=== PATIENT | male | born 1950 | race African-American/Black ===

== ENCOUNTER 2017-05-24 04:45 | Inpatient (IN) ==
--- NOTE | 2017-05-19 11:44 | EKG Report ---
Test Performed on : 05/19/2017 11:00:00 AM Test Reason : pat Blood Pressure : / mmHG Vent. Rate : 060 BPM Atrial Rate : 060 BPM P-R Int : 204 ms QRS Dur : 092 ms QT Int : 400 ms P-R-T Axes : 019 -02 005 degrees QTc Int : 400 ms Normal sinus rhythm. Nonspecific T wave abnormality Abnormal ECG When compared with ECG of 13-MAR-2015 11:14, No significant change was found Confirmed by Jose Ricardo DO ([id number]) on 05/21/2017 11:19:27 AM
[2017-05-19 12:05] LABS: HEMATOCRIT 41.1 % (42.0-52.0); HEMOGLOBIN 13.4 g/dL (14.0-18.0); MCH 28.5 PG (27-31); MCHC 32.6 g/dL (33-37); MCV 87.4 FL (81-99); MPV 12.3 FL (7.4-10.4); RBC 4.7 XMIL (4.7-6.1)
[2017-05-19 12:16] LABS: AGAP 14; BUN 12 mg/dL (8-22); CALCIUM 9.2 mg/dL (8.8-10.2); CHLORIDE 102 mmol/L (98-107); COSMO 277; POTASSIUM 4.3 mmol/L (3.5-5.1); SODIUM 139 mmol/L (136-145); TCO2 23 mmol/L (25-35)
[2017-05-24] MEDS ORDERED: PEPCID ONE (06:42)
[2017-05-24] MEDS ORDERED: LR 1,000 ML ONE ×3 (06:42→11:14)
[2017-05-24] MEDS ORDERED: INVANZ 1 GM/NS 1 GM/50 ML IVPB ONE (06:42)
[2017-05-24] MEDS ORDERED: ENTEREG ONE (06:42)
[2017-05-24] MEDS ORDERED: REGLAN ONE (06:42)
[2017-05-24] MEDS ORDERED: DIPRIVAN 1% ONE (06:52)
[2017-05-24] MEDS ORDERED: XYLOCAINE-MPF 2% ONE (06:54)
[2017-05-24] MEDS ORDERED: XYLOCAINE 1%/EPI 1:100,000 ONE (07:01)
[2017-05-24] MEDS ORDERED: MARCAINE 0.25% PF ONE ×4 (07:01→12:18)
[2017-05-24] MEDS ORDERED: EXPAREL 1.3% ONE (07:14)
[2017-05-24] MEDS ORDERED: SODIUM CHLORIDE 0.9% 10 ML ONE ×3 (07:14→08:33)
[2017-05-24] MEDS ORDERED: QUELICIN (DOSE) ONE (07:59)
[2017-05-24] MEDS ORDERED: NORCURON ONE (08:04)
[2017-05-24 08:18] LABS: URINE MICRO REVIEW NEEDED? NO; URINE SOURCE CATH
[2017-05-24 08:23] LABS: BILIRUBIN URINE NEGATIVE (NEGATIVE); BLOOD URINE SMALL (NEGATIVE); COLOR YELLOW; GLUCOSE URINE NEGATIVE (NEGATIVE); LEUKOCYTES URINE NEGATIVE (NEGATIVE); NITRITE URINE NEGATIVE (NEGATIVE); PH URINE 5.5; PROTEIN URINE NEGATIVE (NEGATIVE); SP GRAVITY URINE 1.019; TURBIDITY URINE CLEAR (CLEAR); UROBILINOGEN URINE NORMAL (NORMAL)
[2017-05-24 08:25] LABS: UR EPITHELIAL CELLS <10 /HPF (<10); URINE BACTERIA NEGATIVE /HPF; URINE RBC 20-40 /HPF (<10); URINE WBC <10 /HPF (<10)
[2017-05-24] MEDS ORDERED: EPHEDRINE ONE (08:28)
[2017-05-24] MEDS ORDERED: ZOFRAN ONE (08:28)
[2017-05-24] MEDS ORDERED: FENTANYL ONE ×2 (08:41→09:32)
[2017-05-24] MEDS ORDERED: OFIRMEV 1000 MG/ISOTONIC SOLN 1,000 MG/100 ML BOTTLE ONE (10:00)
[2017-05-24] MEDS ORDERED: ROBINUL ONE (10:32)
[2017-05-24] MEDS ORDERED: NEOSTIGMINE ONE (10:33)
[2017-05-24] MEDS: MORPHINE ONE ×2 (11:45→11:55)
[2017-05-24] MEDS ORDERED: NAROPIN 0.5% ONE (12:16)
--- NOTE | 2017-05-24 12:20 | OPERATIVE NOTE ---
PROCEDURE DATE: 05/24/2017 PREOPERATIVE DIAGNOSIS: Terminal ileal mass. POSTOPERATIVE DIAGNOSIS: Terminal ileal mass. PROCEDURE PERFORMED: Laparoscopic right hemicolectomy. ESTIMATED BLOOD LOSS: 50 mL. SPECIMENS: Right colon and terminal ileum. ANESTHESIA: General with a tap block. INDICATION: This is a 66-year-old male with GI bleed. Scope by Dr. Matias and found to have a terminal ileal mass. Biopsies were inconclusive. 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 OPERATIVE FINDINGS: There was some inflammatory type adhesions to the ileocecal valve area. There was bulky mesentery along the ileocolic pedicle. Otherwise liver, peritoneum, small bowel, and the remaining quadrants of the abdomen were normal. OPERATIVE NOTE: Risks, benefits, and alternatives discussed with the patient, and he consented to the procedure. He was seen preoperatively and to be performed was confirmed. He has taken to the operating room, placed in the supine position. General anesthesia induced and then Dr. Galan performed a tap block with Exparel. His abdomen was prepped with chlorhexidine solution after a Roper catheter was placed. After time-out was performed we made a midline incision above the umbilicus and dissected down to the level of the fascia. There appeared to be a hernia defect here that was not appreciated on exam but we dissected out and entered through the hernia defect and placed a 12 mm Manuel trocar, protect underlying structures. Insufflated the abdomen with 15 mmHg. We inspected to make sure there was no injury, there was not. We then placed the patient in Trendelenburg position, left side down. Placed a 5 mm trocar in the suprapubic location and a 5 mm in the left lower quadrant. It was ultimately up sized to a 12 mm port. We then again inspected the abdomen. We identified the ileocecal valve and the antimesenteric fat pad. We elevated this, identifying the ileocolic pedicle. There were some adhesions here foreshortening the mesentry. We dissected this down and . Given its foreshortening, to get a better grasp and mobility we mobilized the right colon up to and around the hepatic flexure, widely protecting the retroperitoneal structures. This was done successfully in the avascular plane along the white line of Toldt. After doing this, we again turned our attention medially. Dissected out the ileocolic pedicle at the level of the duodenum quite high protecting this We dissected this out circumferentially, again protecting the retroperitoneal structures laterally to this, and using a vascular load Endo- ZAC stapler we divided this. We then did bluntly carried our dissection out to the level of duodenum and completed the medial to lateral dissection. Right colon was fully mobilized. At this point, we completed the laparoscopic portion of our operation. Confirming hemostasis and that there was no other iatrogenic injury, we extended the Manuel trocar to approximately 4 cm incision here and then brought the specimen out through this port. There was another small vessel that was feeding off of ileocolic pedicle that we had to divide. We did this with Vicryl suture. Then the small bowel mesentery along the terminal ileum was taken to make sure we had adequate margin of the mass with LigaSure device. We did have adequate mobilization here. We created using a purple load Endo-ZAC stapler a [id number] functional end-to-end anastomosis a 60 mm staple and we used 2 loads to create the common enterotomy, making an adequately wide common enterotomy. We then resected the specimen and closed the enterotomies with a 2nd fire of the Endo- ZAC. Passed the specimen off. There was good pulse in the mesentery on both sides and they are well perfused. We did confirm this prior to creating our anastomosis. I think the anastomosis was fed off the right branch of the middle colic which had a strong pulse in it, all the way to the edge of our anastomosis. We did protect the wound edges with laps prior to opening and there was no gross spillage of succus here. We imbricated the corners of our staple line with interrupted 3-0 Vicryl suture and closed the mesenteric defect with interrupted 3-0 Vicryl sutures as well. The anastomosis was patent, well perfused, and under no tension. We did place a crotch stitch there as well. We reduced his abdomen, covered it with omentum. Closed the fascia with interrupted #1 PDS sutures and a 0 Vicryl suture in the left lower quadrant. We then closed the skin with running subcuticular stitch. Dermabond was applied. Counts correct x2. He tolerated the procedure well. He was awoken and transferred to the PACU in good condition. Will continue his Roper catheter. I spoke with the family. cc: MD INDIRA Leal
[2017-05-24] MEDS ORDERED: SALINE LOCK IV FLUID XX ONE (13:00)
[2017-05-24] MEDS ORDERED: ULTRAM PO PRN (13:00)
[2017-05-24] MEDS ORDERED: ZOFRAN IV PRN (13:00)
[2017-05-24] MEDS: LR 1,000 ML IV SCH (13:15)
[2017-05-24] MEDS: OFIRMEV 1000 MG/ISOTONIC SOLN 1,000 MG/100 ML BOTTLE IV SCH ×2 (17:00→21:54)
[2017-05-24] MEDS: PERIDEX MT SCH (21:55)
[2017-05-25] MEDS: OFIRMEV 1000 MG/ISOTONIC SOLN 1,000 MG/100 ML BOTTLE IV SCH ×4 (04:18→21:15)
[2017-05-25] MEDS: LR 1,000 ML IV SCH ×2 (04:22→11:13)
[2017-05-25 05:26] LABS: BASO% 0.2 % (0.0-0.8); EOS# 0.03 X1000 (0.0-0.7); EOS% 0.5 % (0.0-10.0); HEMATOCRIT 37.6 % (42.0-52.0); HEMOGLOBIN 12.4 g/dL (14.0-18.0); LYMPH# 0.76 X1000 (1.2-3.4); LYMPH% 11.9 % (20.5-51.1); MANUAL DIFF NEEDED? NO; MCH 28.2 PG (27-31); MCV 85.6 FL (81-99); MONO# 0.64 X1000 (0.11-0.59); NEUT% 77.4 % (42.2-75.2); PLT 153 X1000 (130-400); RBC 4.39 XMIL (4.7-6.1)
[2017-05-25 05:49] LABS: AGAP 12; BUN 7 mg/dL (8-22); CHLORIDE 99 mmol/L (98-107); COSMO 278; POTASSIUM 4.4 mmol/L (3.5-5.1); SODIUM 139 mmol/L (136-145); TCO2 28 mmol/L (25-35)
[2017-05-25] MEDS ORDERED: MOTRIN PO ONE (09:19)
[2017-05-25] MEDS: NEXIUM PO SCH (11:11)
[2017-05-25] MEDS: ENTEREG PO SCH ×2 (11:11→21:15)
[2017-05-25] MEDS: BYSTOLIC PO SCH (11:12)
[2017-05-25] MEDS: PERIDEX MT SCH ×2 (11:12→21:15)
[2017-05-25] MEDS: LOVENOX SUBQ SCH (11:12)
[2017-05-25] MEDS: MAG-OX PO SCH (11:12)
--- NOTE | 2017-05-25 13:24 | PROGRESS NOTE ---
DATE: 05/25/2017 SUBJECTIVE: He feels very well. He is sitting up in a chair today. He is tolerating clear liquids. No flatus yet. No nausea, vomiting. No belching. OBJECTIVE: No fevers. Pulse has been in the 60s. Blood pressure 148/72. Oxygen saturation 97% on room air. General: He is alert in no acute distress. Abdomen is soft, nontender, nondistended. Incision is clean, dry, intact. LABORATORY DATA: White count 6, hematocrit 37, creatinine 0.8, glucose 149. ASSESSMENT AND PLAN: A 66-year-old male, status post right colectomy, doing very well. We removed his Roper this morning. We will continue to advance him as a knee rest protocol. He is not requiring any narcotic medicines and will keep him on our ERAS protocol, add ibuprofen today and Ultram as needed. He is on PPI and Lovenox. Will continue to follow along. cc: Rossana Harp MD MTDD
[2017-05-25] MEDS: MOTRIN PO SCH ×2 (16:18→21:15)
[2017-05-26] MEDS: OFIRMEV 1000 MG/ISOTONIC SOLN 1,000 MG/100 ML BOTTLE IV SCH ×4 (03:20→17:57)
[2017-05-26] MEDS: LR 1,000 ML IV SCH ×2 (03:20→06:13)
[2017-05-26] MEDS: PERIDEX MT SCH ×2 (08:52→22:20)
[2017-05-26] MEDS: MOTRIN PO SCH ×3 (08:52→22:19)
[2017-05-26] MEDS: BYSTOLIC PO SCH (08:52)
[2017-05-26] MEDS: ENTEREG PO SCH ×2 (08:52→22:20)
[2017-05-26] MEDS: NEXIUM PO SCH (08:52)
[2017-05-26] MEDS: MAG-OX PO SCH (08:53)
[2017-05-26] MEDS: LOVENOX SUBQ SCH (08:53)
--- NOTE | 2017-05-26 15:04 | PROGRESS NOTE ---
DATE: 05/26/2017 SUBJECTIVE: Feels well. He is voiding. No nausea, vomiting. He is tolerating a soft diet. No flatus yet. OBJECTIVE: No fevers. No tachycardia. Blood pressure normal for him ranging from 130s to 170s.General: He is alert. Abdomen: Soft, appropriately tender. Incision clean, dry, and intact. LABORATORY DATA: No new labs this morning. ASSESSMENT/PLAN: 66-year-old male, status post laparoscopic right colectomy. Doing overall very well. We are advancing per the ERAS protocol. We will monitor for return of bowel function. Plan to let him go home after he does this. He is doing well. Not requiring any oral pain medicine right now. cc: Rossana Harp MD
[2017-05-26] MEDS ORDERED: TYLENOL PO PRN (17:59)
[2017-05-27 06:21] VITALS: BP 191/88
--- NOTE | 2017-06-14 09:46 | DISCHARGE SUMMARY ---
ADMISSION DATE: 05/24/2017 DISCHARGE DATE: 05/27/2017 PREADMISSION DIAGNOSIS: Terminal ileal mass. DISCHARGE DIAGNOSIS: Terminal ileal mass. PROCEDURE PERFORMED: Laparoscopic right hemicolectomy. HISTORY OF PRESENT ILLNESS: This is a 66-year-old male, who during workup of a lower GI bleed was found to have a nearly obstructing terminal ileal mass. Biopsy was indeterminate. It was felt to be a submucosal lesion concerning for just possibly a large polyp. HOSPITAL COURSE: He was seen preoperatively and was cleared by anesthesia for above procedure. For details, please see dictated operative note. Postoperatively, he was admitted to my service. His diet was advanced to regular. Roper catheter was removed. On postoperative day #1, he was able to void without difficulty. He really did not require any narcotic pain medication through his admission. He was maintained with IV affirmative. He did have a tap block which provided him good pain relief. He was able to ambulate, tolerated diet. On the morning of postoperative day #3 he was passing gas. Vital signs were all stable. Incisions all looked okay. His postop day 1 labs were adequate. He is felt safe to discharge home. Follow up appointments with me in the next week to discuss pathology. DISPOSITION: Home to self-care. DISCHARGE DIET: GI soft diet. DISCHARGE MEDICATIONS: He is to continue taking his home medications. INSTRUCTIONS: He will avoid heavy lifting greater than 10 pounds. He will call me with any fevers, nausea, vomiting, worsening abdominal pain, redness or drainage from his incisions. Otherwise, he will take Tylenol and Motrin for pain going forward. cc: Rossana Harp MD
== END 2017-05-27 09:55 | disposition home or self-care (01) ==
LOC: SURHOLD 04:45 → 4N 11:24
PROVIDERS: ADMIT Surgery; ATTEND Surgery